=== PATIENT | male | born 1970 | race Caucasian/White ===

== ENCOUNTER 2019-11-04 18:11 | Emergency (ER) | payer OTHER, MEDICAID, SELFPAY ==
[2019-11-04] VITALS (11 sets, daily range): BP systolic 91–187; BP diastolic 52–91; PULSE 77–117; RESP 15–20; TEMP 36.7–37; O2SAT 99–100
--- NOTE | 2019-11-04 18:58 | PC.NURSE ---
intermittent left nostril epistaxis since saturday, pt evaluated at [facility], [facility] last saturday, given nose clips and aftrin spray, denies injury, denies taking anticoagulant. pt continue to be spitting out small amount of blood. pt blew out large blood clot, afrin spray provided, nose clips placed, advices pt to leave it for 20 minutes.
--- NOTE | 2019-11-04 19:12 | ED.EPISTAXIS ---
HPI - Epistaxis General Chief complaint: Nasal Problem Stated complaint: Bloody nose Time Seen by Provider: 11/04/19 18:31 Source: patient Mode of arrival: Wheelchair Limitations: no limitations History of Present Illness HPI Narrative: 48-year-old male daily smoker with extensive alcohol history presents with a left-sided nosebleed that is been present off and on for the past few days. He takes no blood thinners. He was seen at an outside facility and had cautery performed a few days ago but states he has had multiple episodes of bleeding ever since. He denies any injury. He does feel quite fatigued and dizzy upon standing. MD complaint: epistaxis Location: left nostril Onset (ago): day(s) Duration: intermittent Context: history of previous Associated symptoms: weakness Treatment prior to arrival: nose pinching, head tilted back and nasal clamp Related Data Allergies Allergy/AdvReac Type Severity Reaction Status Date / Time oxymetazoline Allergy Verified 11/04/19 18:25 [From Jonna (oxymetazoline)] Review of Systems Constitutional Constitutional: Denies chills, Reports fatigue, Denies fever(s), Denies frequent falls, Denies lethargy and Reports weakness Eyes Eyes: Denies change in vision, Denies eye discharge, Denies irritation and Denies loss of vision ENT Ears, Nose, Mouth, and Throat: Denies change in voice, Denies dizziness, Reports epistaxis, Denies neck pain, Denies sore throat and Denies throat swelling Cardiovascular Cardiovascular: Denies chest pain, Denies irregular heart rhythm, Denies lightheadedness, Denies palpitations, Denies dyspnea, Denies dyspnea on exertion and Denies orthopnea Respiratory Respiratory: Denies cough, Denies dyspnea, Denies dyspnea on exertion and Denies wheezing Gastrointestinal Gastrointestinal: Denies abdominal pain, Denies change in bowel habits, Denies diarrhea, Denies nausea and Denies vomiting Genitourinary Genitourinary: Denies hematuria, Denies flank pain, Denies urinary incontinence and Denies urinary urgency Musculoskeletal Musculoskeletal: Denies back pain, Denies muscle weakness, Denies neck pain, Denies numbness and Denies tingling Integumentary/Breasts Skin/Breast: Denies pruritus, Denies erythema, Denies rash and Denies wounds Neurologic Neurologic: Denies behavioral changes, Denies confusion, Denies dizziness, Denies frequent falls, Denies loss of vision, Denies numbness, Denies tingling and Reports weakness Psychiatric Psychiatric: Denies anxiety, Denies behavioral changes, Denies confusion, Denies depression, Denies homicidal ideation and Denies suicidal ideation Endocrine Endocrine: Reports fatigue, Denies flushing and Denies palpitations Hematologic/Lymphatic Hematologic/Lymphatic: Denies easy bruising Allergic/Immunologic Allergic/Immunologic: Denies urticaria, Denies throat swelling and Denies wheezing Patient History Social History Smoking Status: Current every day smoker Smoking Status: Current every day smoker tobacco type: cigarettes alcohol intake frequency: 3 or more drinks per day Alcohol type: beer Substance Use Type: marijuana Exam Narrative Exam Narrative: GENERAL: [48] year old patient appears stated age. Well-nourished, well-developed patient, in mild distress. HEAD: Atraumatic. Normocephalic. EYES: Pupils equal round and reactive. Extraocular motions intact. No scleral icterus. No injection or drainage. ENT: Fresh clots in left knee air with evidence of recent cauterization, site of bleeding not visualized. Fresh blood in posterior pharynx Throat without erythema, tonsillar hypertrophy or exudate. Airway patent. NECK: Trachea midline. Non tender CARDIOVASCULAR: Regular rate and rhythm without murmurs, gallops, or rubs. RESPIRATORY: Clear to auscultation. Breath sounds equal bilaterally. No wheezes, rales, or rhonchi. GASTROINTESTINAL: Abdomen soft, non-tender, nondistended. EXTREMITIES: No edema or joint tenderness. BACK: Nontender without deformity or crepitance. No flank tenderness. NEURO: AOx3. SKIN: No rash or erythema of visible areas Initial Vital Signs Initial Vital Signs: Vital Signs Temperature 98.4 F 11/04/19 18:22 Pulse Rate 89 11/04/19 18:22 Respiratory Rate 20 11/04/19 18:22 Blood Pressure 151/83 H 11/04/19 18:22 Pulse Oximetry 99 11/04/19 18:22 Procedures Epistaxis Control Time Out Performed: Yes Nostril: left Direct Inspection: yes Clots Removed by: blowing nose and suction Cautery Used: none Device Inserted: hemostatic balloon Patient Tolerated Procedure: well Course Orders Ordered: ED Orders 11/04/19 19:20 CBC Auto Diff [Complete Blood Count AUTO DIFF] Stat PTT [Partial Thromboplastin Time] Stat Prothrombin Time INR Stat 11/04/19 20:45 Packed Cells Stat Type and Screen Stat Discontinued Medications Tranexamic Acid (Cyklokapron) 1,000 mg MM NOW ONE Stop: 11/04/19 19:27 Last Admin: 11/04/19 19:35 Dose: 1,000 mg Documented by: MMCFARL Vital Signs Vital signs: Vital Signs - 8 hr 11/04/19 20:10 11/04/19 21:39 11/04/19 22:03 Temperature 98.1 F Pulse Rate 87 82 Pulse Rate [Orthostatic Lying] 85 Pulse Rate [Orthostatic Sitting] 100 H Pulse Rate [Orthostatic Standing] 117 H Respiratory Rate 18 15 Blood Pressure 187/91 H Blood Pressure [Left Arm] 171/91 H Blood Pressure [Orthostatic Lying] 173/88 H Blood Pressure [Orthostatic Sitting] 154/78 H Blood Pressure [Orthostatic Standing] 91/52 L Pulse Oximetry 99 11/04/19 22:16 11/04/19 22:45 11/04/19 23:00 Temperature 98.6 F Pulse Rate 84 88 85 Pulse Rate [Orthostatic Lying] Pulse Rate [Orthostatic Sitting] Pulse Rate [Orthostatic Standing] Respiratory Rate 16 17 16 Blood Pressure Blood Pressure [Left Arm] 169/89 H 173/84 H 165/75 H Blood Pressure [Orthostatic Lying] Blood Pressure [Orthostatic Sitting] Blood Pressure [Orthostatic Standing] Pulse Oximetry 100 99 99 11/04/19 23:26 11/04/19 23:32 11/04/19 23:47 Temperature 98.2 F 98.2 F 98.1 F Pulse Rate 79 77 77 Pulse Rate [Orthostatic Lying] Pulse Rate [Orthostatic Sitting] Pulse Rate [Orthostatic Standing] Respiratory Rate 15 15 16 Blood Pressure 186/88 H 186/88 H 179/81 H Blood Pressure [Left Arm] Blood Pressure [Orthostatic Lying] Blood Pressure [Orthostatic Sitting] Blood Pressure [Orthostatic Standing] Pulse Oximetry 11/05/19 00:13 Temperature Pulse Rate 89 Pulse Rate [Orthostatic Lying] Pulse Rate [Orthostatic Sitting] Pulse Rate [Orthostatic Standing] Respiratory Rate 19 Blood Pressure Blood Pressure [Left Arm] 191/87 H Blood Pressure [Orthostatic Lying] Blood Pressure [Orthostatic Sitting] Blood Pressure [Orthostatic Standing] Pulse Oximetry 100 MDM - Epistaxis Lab Data Result diagrams: 11/04/19 19:20 Labs: Lab Results 11/04/19 11/04/19 11/04/19 Range/Units 19:20 19:20 20:45 WBC 12.2 H (4.5-11.0) X10^3/uL RBC 2.05 L (4.5-5.9) X10^6/uL Hgb 7.2 L (13.5-17.5) g/dL Hct 20.3 L* (41-53) % MCV 99.4 (80-100) fL MCH 35.3 H (26-34) PG MCHC 35.5 (30-36) % RDW 12.3 (11.6-14.8) % Plt Count 185 (150-400) X10^3/uL Neut % (Auto) 74.4 (50-75) % Lymph % (Auto) 14.8 L (25-40) % [place] % (Auto) 10.0 (3-14) % Eos % (Auto) 0.6 L (2-4) % Baso % (Auto) 0.2 (0-2) % Neut # (Auto) 9100 H (0794-1527) /uL Lymph # (Auto) 1800 (7958-0603) /uL [place] # (Auto) 1200 H (0-900) /uL Eos # (Auto) 100 (0-450) /uL Baso # (Auto) 0 (0-100) /uL PT 11.3 (10.1-12.7) SECONDS INR 1.0 (0.9-1.3) APTT TNP Blood Type A Positive Antibody Screen Negative Crossmatch See Detail [facility] Narrative Medical decision making narrative: Patient did poorly with orthostatics and had heart rate jumped from the 80s up to 117 and he became quite fatigued. Given his hemoglobin of around 7 and a hematocrit 20 he was given 2 units of packed cells and felt near complete resolution of symptoms. He's been given return precautions and had questions answered to apparent satisfaction Discharge Plan Departure Patient Disposition: Home Clinical Impression: Epistaxis Anemia Qualifiers: Anemia type: unspecified type Qualified Code(s): D64.9 - Anemia, unspecified Discharge Date/Time: 11/05/19 01:22 Instructions: DI for Nosebleed Activity Restrictions/Additional Instructions: *You have been diagnosed with [left epistaxis] *What to do: *Follow up with [facility] ENT in 2-3 days, call for an appointment. Let them know you were seen in the Emergency Department and that we ask that you be seen in follow up *Return to ER if you should have any new, worsening or concerning symptoms Referrals: Sohail Don MD [Physician] -
[2019-11-04 19:32] LABS: Prothrombin Time 11.3 SECONDS (10.1-12.7)
[2019-11-04] MEDS: TRANEXAMIC ACID 1,000 MG VIAL 1000 MG MM (19:35)
[2019-11-04 19:54] LABS: Add Manual Diff / Slide Review NO; Basophils Absolute Auto 0 /uL (0-100); Basophils Percent Auto 0.2 % (0-2); Eosinophils Absolute Auto 100 /uL (0-450); Eosinophils Percent Auto 0.6 % (2-4); Lymphocytes Absolute Auto 1800 /uL (1100-4500); Lymphocytes Percent Auto 14.8 % (25-40); Mean Corpuscular Hemoglobin 35.3 PG (26-34); Mean Corpuscular Volume 99.4 fL (80-100); Monocytes Absolute Auto 1200 /uL (0-900); Neutrophils Absolute Auto 9100 /uL (1500-7000); Neutrophils Percent Auto 74.4 % (50-75); Platelet Count 185 X10^3/uL (150-400); Red Blood Cell Count 2.05 X10^6/uL (4.5-5.9); Red Cell Distribution Width 12.3 % (11.6-14.8); White Blood Cell Count 12.2 X10^3/uL (4.5-11.0)
[2019-11-04 19:58] LABS: Hemoglobin 7.2 g/dL (13.5-17.5)
[2019-11-04 19:59] LABS: Hematocrit 20.3 % (41-53)
[2019-11-04 20:05] LABS: Mean Corpuscular HGB Conc 35.5 % (30-36)
--- NOTE | 2019-11-04 20:11 | PC.NURSE ---
Completed orthostatics with patient. During the standing portion of the procedure the pt began to feel very lightheaded and needed to sit down. Pt did not feel like he could complete a ambulation trial at the time. Provider is aware
--- NOTE | 2019-11-04 23:15 | PC.NURSE ---
Pt requesting to speak with before receiving another unit of blood stated he spit up blood a few times but saliva has returned to clear at present and wants to talk to l
[2019-11-05 00:13] VITALS: BP 191/87; PULSE 89; RESP 19; O2SAT 100
--- NOTE | 2019-11-18 02:18 | PC.NURSE ---
Addendum entered by Sharon Padilla R.N. 11/18/19 02:23: Infusion ended at 0013 on 11/05/18 NOT on 11/04/18. Original Note: Late Entry Pt received 325ml Packed Red Blood Cells ended at 0013 on 11/04/19 with VS of BP 191/87, HR 89, R 19, 100% O2 RA, T 98.1 with no adverse reactions noted and pt tolerated infusion well.
== END 2019-11-05 01:22 | disposition home or self-care (01) ==
PROVIDERS: Emergency Provider Emergency Medicine
DX: D64.9 Anemia, unspecified (principal); R04.0 Epistaxis
CPT/HCPCS: 30905; 36415; 36430; 85025; 85610; 86850; 86900; 86901; 99284; P9016

== ENCOUNTER 2019-11-09 13:12 | Emergency (ER) | payer OTHER, MEDICAID, SELFPAY ==
[2019-11-09 13:21] VITALS: BP 169/74; PULSE 73; RESP 15; TEMP 37.1; O2SAT 100; BMI 20.3
[2019-11-09 17:07] VITALS: BP 179/75; PULSE 90; RESP 16; O2SAT 99
--- NOTE | 2019-11-09 17:08 | PC.NURSE ---
pt states 10/31/19 seen at [facility] twice for left nostril bleeding. area was cauterized, afrin administered and nose clamp place. pt sent home, returned that evening for recurrent bleeding they provided same treatment and sent pt home. pt states he stayed in bed with head elevated and keeping calm that controlled bleeding until saturday when he returned to [facility] for continued bleeding and feeling faint. at that time rhino rocket was placed to left nostril. due to insurance pt unable to follow up with ENT, back here for removal of rhino rocket.
--- NOTE | 2019-11-09 18:45 | ED_ITS ---
HPI - Epistaxis <CAM Thompson - Last Filed: 11/09/19 21:07> General Chief complaint: Nasal Problem Stated complaint: needs drain removed from nose/here last saturday Time Seen by Provider: 11/09/19 18:13 Source: patient Mode of arrival: Ambulatory Limitations: no limitations History of Present Illness HPI Narrative: The patient is a 48 year old male current smoker with history of at least access who presents with a chief complaint of needing a bandage removed from his nose. He states that he has had a rhino rocket in his left nare that was placed last Saturday 5 days ago. He states he tried to follow up with primary care provider who could not get him in for several weeks. He states that ENT would not see him without a referral from his primary care provider but he could not get the referral. He states that his rhino rocket keeps trying to follow out of his nose. He would like it removed. He denies any fevers nausea vomiting or diarrhea. he states that his nosebleed was bad enough on Saturday of that hereceived 2 units PRBCs Related Data Allergies Allergy/AdvReac Type Severity Reaction Status Date / Time oxymetazoline Allergy Verified 11/04/19 18:25 [From Jonna (oxymetazoline)] Review of Systems <CAM Thompson - Last Filed: 11/09/19 21:07> Review of Systems Narrative: GENERAL: Denies chills, fatigue, malaise, fever, sweats. HEENT: See HPI RESPIRATORY: Denies dyspnea, cough, wheezing, hemoptysis, sputum. CARDIOVASCULAR: Denies chest pain, palpitations, orthopnea, edema, GASTROINTESTINAL: Denies nausea, vomiting, abdominal pain, diarrhea, constipation, melena. : Denies dysuria, frequency, incontinence, hematuria, urinary retention. MUSCULOSKELETAL: denies weakness, joint pain, or bony pain SKIN: Denies rash, skin lesions, or other NEUROLOGIC: Denies weakness, headache, numbness, change in speech, confusion, seizures, incoordination. PSYCHIATRIC: No concerning psychosocial issues. 12 point review of systems is negative except for those stated above Patient History <CAM Thompson - Last Filed: 11/09/19 21:07> Social History Smoking Status: Current every day smoker Smoking Status: Current every day smoker tobacco type: cigarettes alcohol intake frequency: 3 or more drinks per day Alcohol type: beer Substance Use Type: marijuana Exam <DEVENDRA Thompson-BC - Last Filed: 11/09/19 21:07> Narrative Exam Narrative: GENERAL: This is a well-nourished, well-developed patient, in no acute distress HEAD: Atraumatic. Normocephalic. No temporal or scalp tenderness. EYES: Pupils equal round and reactive. Extraocular motions intact. No scleral icterus. No injection or drainage. ENT: Nose without purulent drainage or septal hematoma. Throat without erythema, tonsillar hypertrophy or exudate. Uvula midline. Airway patent. rhino rocket noted in left Nare NECK: Trachea midline. No JVD or lymphadenopathy. Supple, nontender, no meningeal signs. CARDIOVASCULAR: Regular rate and rhythm without murmurs, gallops, or rubs. RESPIRATORY: Clear to auscultation. Breath sounds equal bilaterally. No wheezes, rales, or rhonchi. no cough. No increased respiratory effort. No accessory muscle use. GASTROINTESTINAL: Abdomen soft, non-tender, nondistended. No hepato- splenomegaly, or palpable masses. No guarding. EXTREMITIES: No clubbing, cyanosis, or edema. No joint tenderness, effusion, or edema noted. BACK: Nontender without deformity or crepitance. No flank tenderness. NEURO: AOx3. Age appropriate. SKIN: No rash or erythema. Initial Vital Signs Initial Vital Signs: Vital Signs Temperature 98.7 F 11/09/19 13:21 Pulse Rate 73 11/09/19 13:21 Respiratory Rate 15 11/09/19 13:21 Blood Pressure 169/74 H 11/09/19 13:21 Pulse Oximetry 100 11/09/19 13:21 <Annalee Gonzalez DO - Last Filed: 11/10/19 06:43> Initial Vital Signs Initial Vital Signs: Vital Signs Temperature 98.7 F 11/09/19 13:21 Pulse Rate 73 11/09/19 13:21 Respiratory Rate 15 11/09/19 13:21 Blood Pressure 169/74 H 11/09/19 13:21 Pulse Oximetry 100 11/09/19 13:21 Scores <ROSEY ThompsonP-BC - Last Filed: 11/09/19 21:07> GCS Thom coma scale eye opening: Spontaneous [place] coma scale verbal response: Orientated [place] coma scale motor response: Obey commands [place] coma scale total score: 15 Course <Annalee McneilDEVENDRA-BC - Last Filed: 11/09/19 21:07> Vital Signs Vital signs: Vital Signs - 8 hr 11/09/19 13:21 11/09/19 17:07 Temperature 98.7 F Pulse Rate 73 90 Respiratory Rate 15 16 Blood Pressure 169/74 H Blood Pressure [Left Arm] 179/75 H Pulse Oximetry 100 99 <Annalee Heike LisaDO - Last Filed: 11/10/19 06:43> Vital Signs Vital signs: Vital Signs - 8 hr 11/09/19 13:21 11/09/19 17:07 Temperature 98.7 F Pulse Rate 73 90 Respiratory Rate 15 16 Blood Pressure 169/74 H Blood Pressure [Left Arm] 179/75 H Pulse Oximetry 100 99 MDM - Epistaxis <DEVENDRA Thompson-MELISSA - Last Filed: 11/09/19 21:07> MDM Narrative Medical decision making narrative: The patient is a 48-year-old male who presents with a chief complaint of needing his rhino rocket removed as has been in place 5 days. He has no signs of infection, is afebrile. Removed without incident. Slight trickle blood noted which then stopped. Patient then requested to leave, I stated we should watch him for a bit to make sure that he does not have a recurrence. Patient walked out of the emergency department against medical advice prior to discharge. Discharge Plan Departure Patient Disposition: Home Clinical Impression: Epistaxis Discharge Date/Time: 11/09/19 18:59
== END 2019-11-09 18:59 | disposition home or self-care (01) ==
PROVIDERS: Emergency Provider Nurse Practitioner Family
DX: R04.0 Epistaxis (principal)
CPT/HCPCS: 30903; 99281